=== PATIENT | male | born 1995 | race Caucasian/White ===

== ENCOUNTER 2017-03-17 12:41 | Emergency (ER) | payer BC, OTHER ==
[~2017-03-17] VITALS: Ht 177.8 cm; Wt 77.1 kg
[2017-03-17 13:26] LABS: BASOPHILS % (AUTO) 1 % (0-10); EOSINOPHILS # (AUTO) 0.1 10^3/uL (0.0-0.3); EOSINOPHILS % (AUTO) 3 % (0-10); HEMATOCRIT 42 % (40-54); HEMOGLOBIN 14.5 G/DL (13.3-17.7); LYMPHOCYTES # (AUTO) 1.4 X 10^3 (1.0-4.0); LYMPHOCYTES % (AUTO) 32 % (12-44); MEAN CORPUSCULAR HEMOGLOBIN 28 PG (25-34); MEAN CORPUSCULAR HGB CONC 34 G/DL (32-36); MEAN CORPUSCULAR VOLUME 82 FL (80-99); MEAN PLATELET VOLUME 10.6 FL (7.4-10.4); MONOCYTES # (AUTO) 0.5 X 10^3 (0.0-1.0); MONOCYTES % (AUTO) 10 % (0-12); NEUTROPHILS # (AUTO) 2.3 X 10^3 (1.8-7.8); NEUTROPHILS % (AUTO) 54 % (42-75); PLATELET COUNT 146 10^3/uL (130-400); RED BLOOD COUNT 5.19 10^6/uL (4.35-5.85); RED CELL DISTRIBUTION WIDTH 13.5 % (10.0-14.5); WHITE BLOOD COUNT 4.3 10^3/uL (4.3-11.0)
[2017-03-17] MEDS ORDERED: NS IV 1000 ML 1,000 ML IV SCH (13:30)
[2017-03-17] MEDS ORDERED: D ME PO (13:33)
[2017-03-17] MEDS ORDERED: HCG PO (13:33)
[2017-03-17] MEDS ORDERED: MULT473E PO (13:33)
[2017-03-17] MEDS ORDERED: THYR16.2 PO (13:33)
[2017-03-17 13:46] LABS: ALANINE AMINOTRANSFERASE 27 U/L (0-55); ALKALINE PHOSPHATASE 74 U/L (40-136); BILIRUBIN,TOTAL 0.3 MG/DL (0.1-1.0); BUN/CREATININE RATIO 26; CALCIUM 8.9 MG/DL (8.5-10.1); CARBON DIOXIDE 22 MMOL/L (21-32); CHLORIDE 105 MMOL/L (98-107); CREATININE SERUM 0.74 MG/DL (0.60-1.30); GFR ESTIMATED > 60; GLUCOSE 101 MG/DL (70-105); POTASSIUM 3.9 MMOL/L (3.6-5.0); SODIUM 139 MMOL/L (135-145); TOTAL PROTEIN 6.5 GM/DL (6.4-8.2)
--- NOTE | 2017-03-17 14:17 | ED General ---
General Chief Complaint: Dizziness/Syncope Stated Complaint: FLU/GOING TO PASS OUT Nursing Triage Note: PT. STATES HE'S BEEN FEELING LIKE PASSING OUT THIS AM. HAD ENERGY DRINK ET TOOK DAYQUIL THIS AM. FEELS NAUSEATED. [facility] STUDENT [facility] TOLD PT.HE HAD FLU. ON HIS VISIT ON MONDAY. PT. STATES HIS FLU SXS STARTED MONDAY. PT. HAS BEEN FEELING GENERAL MALAISE. DOESN'T FEEL RIGHT. 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 He reports that he got flulike symptoms beginning last Monday. He has lump to his way through the week taking fluids and symptomatic treatment. He was seen by [facility] early in the week and was told he had the flu. Today he attempted to go to work. He took DayQuil and then later took an energy drink and shortly thereafter he began to feel shaky and as if he might dropped to the floor. Timing/Duration: 5-6 Days Associated Systoms: Cough, Fever/Chills, Loss of Appetite, Nausea/Vomiting Allergies and Home Medications Allergies Coded Allergies: No Known Drug Allergies (Unverified , 03/17/17) Home Medications B1,B2,B3,B6,B12/Dexpan/Zn/Dean 473 Ml Elixir, 473 ML PO DAILY, (Reported) D-Methorphan/PE/Acetaminophen 1 Each Capsule, 1 EACH PO PRN, (Reported) Thyroid,Pork 16.25 Mg Tablet, 16.25 MG PO DAILY, (Reported) [Hcg] , 500 EA PO, (Reported) Constitutional: see HPI EENTM: hoarseness, nose congestion Respiratory: cough Cardiovascular: no symptoms reported Gastrointestinal: no symptoms reported Genitourinary: no symptoms reported Musculoskeletal: no symptoms reported Skin: no symptoms reported Psychiatric/Neurological: No Symptoms Reported Hematologic/Lymphatic: No Symptoms Reported Immunological/Allergic: no symptoms reported Past Acdwfqc-Zqmvjt-Vwoyjb Hx Patient Social History Alcohol Use: Denies Use Recreational Drug Use: No Smoking Status: Former Smoker Type Used: Cigarettes Former Smoker, Quit: Feb 20, 2014 Recent Foreign Travel: No Contact w/Someone Who Travel: No Recent Infectious Disease Expo: No Recent Hopitalizations: No Physical Abuse: No Sexual Abuse: No Surgeries History of Surgeries: Yes (ANKLE-R, PLATE ET TWO SCREW ON ANKLE) Respiratory History of Respiratory Disorde: No Cardiovascular History of Cardiac Disorders: No Neurological History of Neurological Disord: No Genitourinary History of Genitourinary Disor: No Gastrointestinal History of Gastrointestinal Di: No Musculoskeletal History of Musculoskeletal Dis: No Endocrine History of Endocrine Disorders: No HEENT History of HEENT Disorders: No Cancer History of Cancer: No Psychosocial History of Psychiatric Problem: Yes Behavioral Health Disorders: Anxiety Suicide Risk Score: 0 Integumentary History of Skin or Integumenta: No Physical Exam Vital Signs Vital Sign - Last 12Hours 03/17/17 13:08 Temp 98.8 Pulse 58 Resp 20 B/P (MAP) 134/87 (103) Pulse Ox 98 O2 Delivery Room Air Capillary Refill : Less Than 3 Seconds General Appearance: Mild Distress Eyes: Bilateral Eye Normal Inspection HEENT: Normal ENT Inspection Neck: Normal Inspection Respiratory: Chest Non Tender, Lungs Clear, Normal Breath Sounds, No Accessory Muscle Use, No Respiratory Distress Cardiovascular: Regular Rate, Rhythm, No Edema, No Gallop, No JVD, No Murmur, Normal Peripheral Pulses Gastrointestinal: Normal Bowel Sounds, No Organomegaly, No Pulsatile Mass, Non Tender, Soft Back: Normal Inspection, No CVA Tenderness, No Vertebral Tenderness Neurologic/Psychiatric: Alert, Oriented x3, No Motor/Sensory Deficits, Normal Mood/Affect Skin: Normal Color, Warm/Dry Lymphatic: No Adenopathy Progress/Results/Core Measures Suspected Sepsis Recent Fever Within 48 Hours: No Infection Criteria Present: None New/Unexplained Altered Menta: No Sepsis Screen: No Definite Risk Sepsis Diagnosis: SIRS Temperature:98.8 Pulse: 58 Respiratory Rate: 20 Laboratory Tests 03/17/17 13:19: White Blood Count 4.3 Blood Pressure 134 /87 Mean: 103 Laboratory Tests 03/17/17 13:19: Creatinine 0.74, Platelet Count 146, Total Bilirubin 0.3 Results/Orders Lab Results Laboratory Tests Test 03/17/17 13:19 Range/Units White Blood Count 4.3 4.3-11.0 10^3/uL Red Blood Count 5.19 4.35-5.85 10^6/uL Hemoglobin 14.5 13.3-17.7 G/DL Hematocrit 42 40-54 % Mean Corpuscular Volume 82 80-99 FL Mean Corpuscular Hemoglobin 28 25-34 PG Mean Corpuscular Hemoglobin Concent 34 32-36 G/DL Red Cell Distribution Width 13.5 10.0-14.5 % Platelet Count 146 130-400 10^3/uL Mean Platelet Volume 10.6 H 7.4-10.4 FL Neutrophils (%) (Auto) 54 42-75 % Lymphocytes (%) (Auto) 32 12-44 % Monocytes (%) (Auto) 10 0-12 % Eosinophils (%) (Auto) 3 0-10 % Basophils (%) (Auto) 1 0-10 % Neutrophils # (Auto) 2.3 1.8-7.8 X 10^3 Lymphocytes # (Auto) 1.4 1.0-4.0 X 10^3 Monocytes # (Auto) 0.5 0.0-1.0 X 10^3 Eosinophils # (Auto) 0.1 0.0-0.3 10^3/uL Basophils # (Auto) 0.0 0.0-0.1 10^3/uL Sodium Level 139 135-145 MMOL/L Potassium Level 3.9 3.6-5.0 MMOL/L Chloride Level 105 98-107 MMOL/L Carbon Dioxide Level 22 21-32 MMOL/L Anion Gap 12 5-14 MMOL/L Blood Urea Nitrogen 19 H 7-18 MG/DL Creatinine 0.74 0.60-1.30 MG/DL Estimat Glomerular Filtration Rate > 60 BUN/Creatinine Ratio 26 Glucose Level 101 70-105 MG/DL Calcium Level 8.9 8.5-10.1 MG/DL Total Bilirubin 0.3 0.1-1.0 MG/DL Aspartate Amino Transf (AST/SGOT) 19 5-34 U/L Alanine Aminotransferase (ALT/SGPT) 27 0-55 U/L Alkaline Phosphatase 74 40-136 U/L Total Protein 6.5 6.4-8.2 GM/DL Albumin 4.0 3.2-4.5 GM/DL My Orders Orders - CHARLES MADERA MD Cbc With Automated Diff (03/17/17 12:49) Comprehensive Metabolic Panel (03/17/17 12:49) Ua Culture If Indicated (03/17/17 12:49) Ns Iv 1000 Ml (Sodium Chloride 0.9%) (03/17/17 13:30) Vital Signs/I&O Vital Sign - Last 12Hours 03/17/17 13:08 Temp 98.8 Pulse 58 Resp 20 B/P (MAP) 134/87 (103) Pulse Ox 98 O2 Delivery Room Air Capillary Refill : Less Than 3 Seconds Blood Pressure Mean: 103 Departure Communication (Admissions) Progress Notes Vital signs were excellent with pulse in the 50s and more than adequate blood pressure. CBC was normal. Impression Impression: Primary Impression: flulike symptoms Disposition: HOME, SELF-CARE Condition: Stable/Unchanged Departure-Patient Inst. Decision time for Depature: 14:17 Referrals: TOMASA RANDALL MD (PCP) Primary Care Physician Add. Discharge Instructions: All discharge instructions reviewed with patient and/or family. Voiced understanding. Get at least 8 hours of sleep daily. Lots of liquids. Avoid alcohol and caffeine otherwise your choice. Tylenol 650 every 4 hours or ibuprofen 600 mg every 6 hours for fever aches and pains. On the basis of community observations this can take 3-4 weeks to resolve. CHARLES MADERA MD Mar 17, 2017 14:17
[2017-03-17 15:10] VITALS: BP 134/87
== END 2017-03-17 15:10 | disposition home or self-care (01) ==
LOC: ER 12:46
DX: J11.1 Influenza due to unidentified influenza virus with other respiratory manifestations (principal); F41.9 Anxiety disorder, unspecified; Z87.891 Personal history of nicotine dependence; Z98.890 Other specified postprocedural states
CPT/HCPCS: 36415; 80053; 85025